=== PATIENT | male | born 1975 | race Caucasian/White ===

== ENCOUNTER 2017-04-26 16:16 | Inpatient (IN) | payer OTHER ==
[~2017-04-26] VITALS: Ht 185.4 cm; Wt 104.4 kg
[2017-04-26 16:29] VITALS: BP 120/74
[2017-04-26 16:45] LABS: BASO # 0.1 10*3/uL (0.0-0.1); BASO % 0.4 % (0.0-1.0); EOS # 0.1 10*3/uL (0.0-0.4); EOS % 0.8 % (1.0-4.0); HEMATOCRIT 40.7 % (42.0-52.0); IG # 0.1 10*3/uL (0.0-0.1); LYMPH # 2.1 10*3/uL (1.3-4.4); LYMPH % 15.8 % (27.0-41.0); MEAN CELL VOLUME 85.3 fl (80.0-94.0); MEAN CORPUSCULAR HGB 29.4 pg (27.0-31.0); MEAN CORPUSCULAR HGB CONC 34.4 g/dl (33.0-37.0); MEAN PLATELET VOLUME 9.1 fl (9.6-12.3); MONO # 0.8 10*3/uL (0.1-1.0); NEUT # 10.2 10*3/uL (2.3-7.9); NEUT % 76.6 % (47.0-73.0); PLATELET COUNT AUTOMATED 280 10*3/uL (130-400); RED BLOOD COUNT 4.77 10*6/uL (4.50-5.90); WHITE BLOOD COUNT 13.3 10*3/uL (4.8-10.8)
[2017-04-26 17:00] LABS: ALBUMIN 3.7 gm/dl (3.1-4.5); ALKALINE PHOSPHATASE 70 U/L (45-117); BILIRUBIN, TOTAL 0.4 mg/dl (0.2-1.0); BUN 9 mg/dl (7-24); CARBON DIOXIDE 24 mmol/L (21-32); CHLORIDE 107 mmol/L (98-107); EST GLOM FILT AFRICAN AMERICAN > 60 ml/min; GLUCOSE 121 mg/dL (65-99); POTASSIUM 3.8 mmol/L (3.5-5.1); SGOT/AST 31 IU/L (3-35); SGPT/ALT 20 U/L (12-78); SODIUM 139 mmol/L (136-145); TOTAL PROTEIN 7.2 gm/dL (6.4-8.2)
[2017-04-26 17:04] LABS: BILIRUBIN NEGATIVE (NEGATIVE); BLOOD TRACE-INTACT (NEGATIVE); CLARITY CLEAR (CLEAR); COLOR YELLOW (YELLOW); GLUCOSE NEGATIVE (NEGATIVE); KETONE NEGATIVE (NEGATIVE); LEUKO ESTERASE NEGATIVE (NEGATIVE); NITRITE NEGATIVE (NEGATIVE); PH 5.5 (5.0-9.0); PROTEIN NEGATIVE (NEGATIVE); SPECIFIC GRAVITY >= 1.030 (1.005-1.030); UROBILINOGEN 0.2 E.U./dl (0.2-1.0)
[2017-04-26 17:06] LABS: URINE AMPHETAMINES < 1000 (1000ng/ml); URINE BARBITURATES < 200 (200ng/ml); URINE COCAINE > 300 (300ng/ml)
[2017-04-26 17:16] LABS: RBC 0-2 rbc/hpf (0-2)
[2017-04-26 17:29] VITALS: BP 129/68
[2017-04-26 17:31] LABS: URINE REFLEX COMMENT NO (NO)
[2017-04-26 20:00] VITALS: BP 123/67
[2017-04-27] VITALS: BP 110/55
[2017-04-27 04:00] VITALS: BP 151/81
[2017-04-27 08:00] VITALS: BP 135/67
[2017-04-27 12:00] VITALS: BP 159/85
[2017-04-27 16:00] VITALS: BP 136/58
[2017-04-27 20:00] VITALS: BP 131/59
[2017-04-28] VITALS: BP 140/69
[2017-04-28 08:00] VITALS: BP 138/82
[2017-04-28 12:00] VITALS: BP 152/86
[2017-04-28 16:00] VITALS: BP 155/86
[2017-04-28 20:00] VITALS: BP 149/91
[2017-04-29] VITALS: BP 115/64
[2017-04-29 06:11] LABS: BASO # 0.1 10*3/uL (0.0-0.1); BASO % 0.6 % (0.0-1.0); EOS # 0.1 10*3/uL (0.0-0.4); EOS % 0.6 % (1.0-4.0); HEMATOCRIT 43.7 % (42.0-52.0); HEMOGLOBIN 15.5 g/dl (14.0-18.0); LYMPH # 3.3 10*3/uL (1.3-4.4); LYMPH % 30.2 % (27.0-41.0); MEAN CELL VOLUME 84.2 fl (80.0-94.0); MEAN CORPUSCULAR HGB 29.9 pg (27.0-31.0); MEAN CORPUSCULAR HGB CONC 35.5 g/dl (33.0-37.0); MEAN PLATELET VOLUME 9.6 fl (9.6-12.3); MONO # 0.8 10*3/uL (0.1-1.0); MONO % 7.7 % (3.0-9.0); NEUT # 6.6 10*3/uL (2.3-7.9); NEUT % 60.5 % (47.0-73.0); PLATELET COUNT AUTOMATED 285 10*3/uL (130-400); RED BLOOD COUNT 5.19 10*6/uL (4.50-5.90); RED CELL DISTRI WIDTH 11.9 % (0-14.5); WHITE BLOOD COUNT 10.9 10*3/uL (4.8-10.8)
[2017-04-29 06:31] LABS: EST GLOM FILT AFRICAN AMERICAN > 60 ml/min
[2017-04-29 08:00] VITALS: BP 146/90
[2017-04-29] MEDS ORDERED: VISTARIL25 MG PO (10:19)
[2017-04-29] MEDS ORDERED: ZOFRAN 4 MG ED2 TAB PO (10:19)
== END 2017-04-29 11:43 | disposition home or self-care (01) | DRG 897 ==
LOC: ED 16:16 → 4E 16:44 → EDHOLD 16:44 → 4E 16:50
PROVIDERS: Internal Medicine; Nurse Practitioner Family
DX: F11.23 Opioid dependence with withdrawal (principal); R65.10 Systemic inflammatory response syndrome (SIRS) of non-infectious origin without acute organ dysfunction; E66.9 Obesity, unspecified; F17.210 Nicotine dependence, cigarettes, uncomplicated; F41.9 Anxiety disorder, unspecified; G25.81 Restless legs syndrome; D72.829 Elevated white blood cell count, unspecified; R73.9 Hyperglycemia, unspecified; F12.90 Cannabis use, unspecified, uncomplicated; F14.90 Cocaine use, unspecified, uncomplicated; Z68.30 Body mass index [BMI] 30.0-30.9, adult; Z71.6 Tobacco abuse counseling; Z81.1 Family history of alcohol abuse and dependence; Z82.49 Family history of ischemic heart disease and other diseases of the circulatory system